=== PATIENT | male | born 2000 | race Caucasian/White ===

== ENCOUNTER 2021-09-12 11:23 | Emergency (ER) | payer OTHER, SELFPAY ==
[2021-09-12 11:28] VITALS: BP 163/78; PULSE 90; RESP 18; TEMP 36.7; O2SAT 99
[2021-09-12] MEDS: SODIUM CHLORIDE 0.9% IV 1,000 ML 999 ML IV CONT (13:12)
[2021-09-12 13:31] LABS: Basophils Percent Auto 0.4 % (0.2-1.2); Eosinophils Absolute Auto 0.1 K/mm3 (0-0.3); Eosinophils Percent Auto 1.4 % (0-4.4); Hematocrit 48.4 % (42.0-52.0); Hemoglobin 16.3 g/dL (14.0-18.0); Immature Granulocyte Absolute 0.02 K/mm3 (0.00-0.031); Immature Granulocyte Percent A 0.2 % (0-0.5); Lymphocytes Absolute Auto 1.34 K/mm3 (0.9-3.2); Lymphocytes Percent Auto 16.6 % (18.3-44.2); Mean Corpuscular HGB Conc 33.7 g/dl (32-36); Mean Corpuscular Hemoglobin 25.3 pg (26-34); Mean Corpuscular Volume 75.2 fl (80-100); Mean Platelet Volume 10.3 fl (7.4-10.4); Monocytes Absolute Auto 0.6 K/mm3 (0.1-0.6); Monocytes Percent Auto 7.6 % (2.6-8.5); Neutrophils Percent Auto 73.8 % (45.5-73.1); Platelet Count Result 279 k/mm3 (150-375); Red Blood Count 6.44 M/mm3 (4.6-6.20); Red Cell Distribution Width 13.7 % (11.5-14.5); White Blood Count 8.1 K/mm3 (4.5-10.0)
[2021-09-12 13:34] LABS: Appearance Urine Clear (Clear); Bilirubin Urine Negative (Negative); Blood Urine Negative (Negative); Color Urine Yellow (Yellow); Glucose Urine UA Negative (Negative); Ketones Urine 1+ mg/dL (Negative); Leukocyte Esterase Ur Negative LEU/UL (Negative); Nitrate Urine Negative (Negative); Protein Urine Negative (Negative); Specific Grav Ur 1.025 (1.001-1.035); Urobilinogen Urine 0.2 mg/dL (<2.0); pH Urine 7.5 (5.0-9.0)
[2021-09-12 13:41] LABS: Alanine Aminotransferase 39 U/L (6-50); Albumin Level 5.1 g/dL (3.5-5.1); Alkaline Phosphatase 89 U/L (38-126); Anion Gap 9 mmol/L (8-16); Aspartate Amino Transferase 48 U/L (17-59); Bilirubin,Total 0.7 mg/dL (0.2-1.3); Blood Urea Nitrogen 12 mg/dL (9-20); Carbon Dioxide 26 mmol/L (22-30); Chloride 106 mmol/L (98-107); Estimated Glomerular Filt Rate > 60; Glucose 113 mg/dL (65-110); Potassium 3.7 mmol/L (3.4-5.0); Sodium 141 mmol/L (137-145)
[2021-09-12 13:43] LABS: Mucus Urine Rare /lpf; RBC Urine 0-2 /hpf (0-2); WBC Urine 0-3 /hpf
[2021-09-12 13:54] LABS: Add Urine Microscopic? YES
--- NOTE | 2021-09-12 15:27 | ED.GENADULT ---
HPI - General Adult General Chief complaint: Unspecified Stated complaint: vomiting, dizzy Time Seen by Provider: 09/12/21 12:18 Source: patient Mode of arrival: ambulatory Limitations: no limitations History of Present Illness HPI narrative: 21 years old presents with nausea and vomiting this morning up to 15 times so far. He denies any fever, chills, abdominal pain, diarrhea. Patient is concerned about the possibility of iron deficiency because he has multiple bruises on the arms and legs for months. Patient reported that he is extremely stressed lately because his girlfriend told him that it seems like he have iron deficiency that is why he have bruises. Patient works at [employer] with a lot of lifting and contusions. Patient also would like to check himself for STD because his girlfriend is not faithful, had chlamydia few months ago. Currently denying any penile discharge or burning urination. Related Data Allergies Allergy/AdvReac Type Severity Reaction Status Date / Time No Known Allergies Allergy Verified 09/12/21 14:54 Review of Systems Review of Systems: All systems reviewed & are unremarkable except as noted in HPI and below Exam Narrative: General appearance: Well-developed, well-nourished, does not look in pain or distress Skin: Multiple old bruises on the upper extremity mainly right upper 1 Head: Normocephalic, nontraumatic Eyes: Clear conjunctiva ENT: Oropharynx normal, ears normal, nose normal Neck: Supple, nontender Chest and respiratory: Airway patent, no respiratory distress, no accessory muscle use Heart: Regular rate/rhythm Abdomen: Soft, nontender, no organomegaly, quiet bowel sounds Vascular: Normal peripheral pulses, normal capillary refill. Musculoskeletal: Normal range of motion, nontender back Neurologic: Alert and oriented ?3, REGISTERED RADIATION THERAPIST is normal as tested, no gross motor deficit Course Vital Signs Vital signs: Vital Signs Temperature 36.7 C 09/12/21 11:28 Pulse Rate 90 09/12/21 11:28 Respiratory Rate 18 09/12/21 11:28 Blood Pressure 163/78 H 09/12/21 11:28 Pulse Oximetry 99 09/12/21 11:28 Oxygen Delivery Room Air 09/12/21 11:28 Temperature 36.7 C 09/12/21 11:28 Pulse Rate 90 09/12/21 11:28 Respiratory Rate 18 09/12/21 11:28 Blood Pressure 163/78 H 09/12/21 11:28 Pulse Oximetry 99 09/12/21 11:28 Oxygen Delivery Room Air 09/12/21 11:28 Medical Decision Making Vital Signs Vital Signs: Vital Signs Temperature 36.7 C 09/12/21 11:28 Pulse Rate 90 09/12/21 11:28 Respiratory Rate 18 09/12/21 11:28 Blood Pressure 163/78 H 09/12/21 11:28 Pulse Oximetry 99 09/12/21 11:28 Oxygen Delivery Room Air 09/12/21 11:28 Temperature 36.7 C 09/12/21 11:28 Pulse Rate 90 09/12/21 11:28 Respiratory Rate 18 09/12/21 11:28 Blood Pressure 163/78 H 09/12/21 11:28 Pulse Oximetry 99 09/12/21 11:28 Oxygen Delivery Room Air 09/12/21 11:28 Lab Data Result diagrams: 09/12/21 13:13 09/12/21 13:13 Labs: Lab Results 09/12/21 09/12/21 09/12/21 Range/Units 13:01 13:13 13:13 WBC 8.1 (4.5-10.0) K/mm3 RBC 6.44 H (4.6-6.20) M/mm3 Hgb 16.3 (14.0-18.0) g/dL Hct 48.4 (42.0-52.0) % MCV 75.2 L (80-100) fl MCH 25.3 L (26-34) pg MCHC 33.7 (32-36) g/dl RDW 13.7 (11.5-14.5) % Plt Count 279 (150-375) k/mm3 MPV 10.3 (7.4-10.4) fl Immature Gran % (Auto) 0.2 (0-0.5) % Neut % (Auto) 73.8 H (45.5-73.1) % Lymph % (Auto) 16.6 L (18.3-44.2) % [place] % (Auto) 7.6 (2.6-8.5) % Eos % (Auto) 1.4 (0-4.4) % Baso % (Auto) 0.4 (0.2-1.2) % Lymph # (Auto) 1.3
[2021-09-12 16:23] VITALS: BP 126/88; PULSE 90; RESP 14; O2SAT 99
== END 2021-09-12 16:23 | disposition home or self-care (01) ==
PROVIDERS: Emergency Provider Emergency Medicine; PCP Family Medicine
DX: R11.10 Vomiting, unspecified (principal); F41.9 Anxiety disorder, unspecified; S40.021A Contusion of right upper arm, initial encounter; X58.XXXA Exposure to other specified factors, initial encounter
CPT/HCPCS: 36415; 80053; 81001; 85025; 96360; 96361; 99283; J7030